=== PATIENT | male | born 1995 | race African-American/Black ===

== ENCOUNTER 2018-03-28 00:12 | Emergency (ER) | payer SELFPAY ==
[2018-03-28] MEDS ORDERED: Ibuprofen 800 MG TAB ONE (01:26)
--- NOTE | 2018-03-28 07:59 | RAD ---
LEFT FOOT 3 VIEWS: HISTORY: A 22-year-old male with a history of left foot pain after hitting foot against a TV stand. FINDINGS/IMPRESSION: No fracture, dislocation, or other significant acute osseous abnormality. POS: [facility]
--- NOTE | 2018-03-28 08:29 | RAD ---
THREE VIEWS LEFT ANKLE: DATE: 03/28/18. HISTORY: Trauma, pain to left ankle. FINDINGS: The ankle mortise is congruent. There is no fracture, dislocation, or other osseous abnormality invo lving the left ankle. IMPRESSION: No acute osseous abnormality. POS: [facility]
== END 2018-03-28 01:45 | disposition home or self-care (01) ==
LOC: ERS 00:12
DX: M25.572 Pain in left ankle and joints of left foot (principal); F41.9 Anxiety disorder, unspecified; F32.9 Major depressive disorder, single episode, unspecified

== ENCOUNTER 2018-11-24 11:26 | Emergency (ER) | payer SELFPAY ==
--- NOTE | 2018-11-24 12:07 | RAD ---
PORTABLE CHEST: Date: 11/24/18 HISTORY: Patient feels something caught in throat. FINDINGS: Heart size and mediastinum are within normal limits. Lungs are clear of any infiltrates. No significa nt bony findings. IMPRESSION: No active intrathoracic disease. POS: [facility]
== END 2018-11-24 12:30 | disposition home or self-care (01) ==
LOC: ERS 11:26
DX: T18.128A Food in esophagus causing other injury, initial encounter (principal); F41.9 Anxiety disorder, unspecified; F32.9 Major depressive disorder, single episode, unspecified; F42.9 Obsessive-compulsive disorder, unspecified; Z79.899 Other long term (current) drug therapy
CPT/HCPCS: 71045

== ENCOUNTER 2025-10-10 17:17 | Emergency (ER) | payer SELFPAY ==
[2025-10-10 18:23] LABS: #Basophils 0.03 10x3/uL (0.0-0.2); #Eosinophils 0.04 10x3/uL (0.0-0.7); #Monocytes 0.50 10x3/uL (0.11-0.59); #Neutrophils 6.17 10x3/uL (1.40-6.50); %Basophils 0.4 % (0.0-1.0); %Eosinophils 0.6 % (0.0-10.0); %Lymphocytes 5.7 % (21.0-51.0); %Monocytes 7.0 % (0.0-10.0); %Neutrophils 85.7 % (42.0-75.0); Hematocrit 42.9 % (42.0-52.0); Hemoglobin 14.2 g/dL (14.0-18.0); Mean Corpuscular Hemoglobin 26.8 pg (27.0-31.0); Mean Corpuscular Volume 81.1 fL (78.0-98.0); Platelet Count 183 10x3/uL (130-400); Red Blood Cell (RBC) Count 5.29 mill/uL (4.70-6.10); White Blood Cell (WBC) Count 7.19 10x3/uL (4.8-10.8)
[2025-10-10] MEDS ORDERED: Acetaminophen 500 MG TAB ONE (18:44)
[2025-10-10 18:53] LABS: Glucose, Urine (Dipstick) Negative (Negative); Leukocyte Negative (Negative); Protein, Urine (Dipstick) Negative (Neg-Trace); Specific Gravity, Urine 1.015 (1.005-1.030)
[2025-10-10 19:02] LABS: Bacteria/HPF None Seen HPF (None Seen); CAUTI Indications for Culture Dysuria,urgency,freq; WBC/HPF 0-3 HPF (0-3)
[2025-10-10 19:06] LABS: Urine Culture Reflex No No
== END 2025-10-10 19:50 | disposition home or self-care (01) ==
LOC: ERS 17:17
DX: J10.1 Influenza due to other identified influenza virus with other respiratory manifestations (principal); M54.50 Low back pain, unspecified
CPT/HCPCS: 36415; 81001; 85025; 86141; 87428; 99283